=== PATIENT | female | born 1965 | race Caucasian/White ===

== ENCOUNTER 2017-01-04 23:04 | Emergency (ER) | payer OTHER ==
--- NOTE | ~2017-01-04 | CT4 ---
[facility] A Service of [facility] RADIOLOGY TEXT RESULTS PATIENT: KOMAL PITTS LOCATION: [facility]FT[facility] : 69 UNIT #: [id number] AGE: [address]: Jennifer Ayala MD SEX: F ORDER DR: [id number] [facility]. [place], [place] [address] [id number] MR#: [id number] Acc #: [id number] NAME: KOMAL PITTS : 1965 SEX: F STUDY DATE/TIME: 01/05/2017 1:08 UNIT: CFTX ROOM: STUDY DESCRIPTION: CT Abd and Pelv Wo Cont Attending Physician: Jennifer Ayala M.D. Ordering Physician: Jennifer Ayala M.D. Primary Care Physician: [facility] IMAGING REPORT This report is preliminary unless electronic signature is present EXAM CT abdomen and pelvis without contrast INDICATIONS Right flank pain for 3 days. History of kidney stones. COMPARISON 02/11/2014. TECHNIQUE Axial 5 mm images were obtained through the abdomen and pelvis without IV or oral contrast. This CT exam was performed with one or more of the following radiation dose reduction techniques: Automatic exposure control, adjustment of mA and/or kV according to patient size, and iterative reconstruction. FINDINGS Lung bases are clear. There is diffuse fatty change throughout the liver. The gallbladder, spleen, pancreas and adrenal glands are normal. The left kidney has a 3-mm stone in the upper pole without obstruction. No right renal stones are identified. There is no hydronephrosis. There are calcified phleboliths in the pelvis and they appear stable. Aorta is normal in size and there is no adenopathy. The bowel, including the appendix, appears normal. The bladder is normal. The uterus has been removed and there are no adnexal masses. IMPRESSION 1. There is a 3 mm nonobstructing left renal stone. 2. There are no ureteral stones or hydronephrosis. 3. The appendix is normal. 4. Fatty liver and previous cholecystectomy. [facility] A Service of [facility] RADIOLOGY TEXT RESULTS PATIENT: KOMAL PITTS LOCATION: [facility] : [birth year] UNIT #: [id number] AGE: [address]: Jennifer Ayala MD SEX: F ORDER DR: Dictated by... Gavin Porter M.D. THIS IS AN ELECTRONICALLY VERIFIED REPORT Gavin Porter M.D. at 01/05/2017 1:14 PM FEL/psc TD: 01/05/2017 03:02 JOB #: [id number] MEDICAL IMAGING REPORT Page 1 of 1 COPY
[2017-01-04 22:31] LABS: URINE SOURCE CLEAN CATCH
[2017-01-04 22:35] LABS: BASOPHIL% 0.6 % (0-2.5); DIFF IND NO; EOSINOPHIL# 0.1 X10e3 (0-0.7); EOSINOPHIL% 1.7 % (0.0-7.0); HEMATOCRIT 42.7 % (35.0-45.0); HEMOGLOBIN 14.1 gm/dL (12.0-16.0); LYMPHOCYTE# 2.2 X10e3 (1.0-3.5); LYMPHOCYTE% 30.7 % (17.0-45.0); MEAN CELL VOLUME 91.6 FL (83-96); MEAN CORPUSCULAR HEMOGLOBIN 30.3 PG (28-34); MEAN PLATELET VOLUME 9.3 FL (6.5-11.5); MONOCYTE# 0.8 X10e3 (0-1.0); MONOCYTE% 10.3 % (3.0-12.0); NEUTROPHIL# 4.1 X10e3 (1.5-7.1); NEUTROPHIL% 56.7 % (40-75); PLATELET COUNT 219 X10e3 (140-420); RED BLOOD COUNT 4.66 X10e (3.90-5.30); RED CELL DISTRIBUTION WIDTH 14.2 % (11.0-15.5); WHITE BLOOD COUNT 7.3 X10e3 (4.0-10.5)
[2017-01-04 22:36] LABS: URINE APPEARANCE CLEAR; URINE BILIRUBIN NEG (NEG); URINE BLOOD NEG (NEG); URINE COLOR YELLOW; URINE GLUCOSE NEG (NEG); URINE KETONE NEG (NEG); URINE LEUKOCYTE ESTERASE NEG (NEG); URINE NITRATE NEG (NEG); URINE PROTEIN NEG (NEG); URINE SPECIFIC GRAVITY 1.033 (1.003-1.035)
[2017-01-04 22:40] LABS: CULTURE INDICATED? NO
[~2017-01-04 23:04] MED LIST: ALBUTEROL17 GM INH; ERYTHROMYCIN250 MG PO; FLEXERIL PO; IBUPROFEN PO; NO MEDICATIONS; PREMARIN PO; PROZAC40 MG; TESSALON200 MG PO; ZITHROMAX1 G/PKT PO
[2017-01-04 23:59] LABS: ALBUMIN SERUM 4.2 g/dL (3.5-5.0); BILIRUBIN, DIRECT 0.1 mg/dL (0.0-0.2); BILIRUBIN,INDIRECT 0.7 mg/dL (0.0-0.9); BILIRUBIN,TOTAL 0.8 mg/dL (0.2-2.0); BUN/CREATININE RATIO 23.75; CALCIUM SERUM 8.8 mg/dL (8.4-10.2); CREATININE SERUM 0.8 mg/dL (0.6-1.4); GLOM FILT RATE Estimated 86.6 mL/min (>60); POTASSIUM 3.8 mmol/L (3.5-5.1); PROTEIN TOTAL SERUM 7.5 g/dL (6.0-8.3)
== END 2017-01-05 01:45 | disposition home or self-care (01) ==
LOC: CFTX 23:04
PROVIDERS: Emergency Medicine
DX: M54.5 Low back pain (principal); F41.9 Anxiety disorder, unspecified; F32.9 Major depressive disorder, single episode, unspecified; F43.10 Post-traumatic stress disorder, unspecified; Z98.51 Tubal ligation status; Z90.710 Acquired absence of both cervix and uterus; Z88.2 Allergy status to sulfonamides
CPT/HCPCS: 36415; 74176; 80048; 80076; 81003; 85025; 96361; 96374; 96375; 99284; J1885; J2405